=== PATIENT | female | born 1980 | race Caucasian/White ===

== ENCOUNTER 2017-04-18 15:29 | Emergency (ER) | payer OTHER ==
[~2017-04-18] VITALS: Ht 160 cm; Wt 63.5 kg
--- NOTE | 2017-04-18 15:36 | NUR ---
TO ROOM: AMBULATE TO ROOM WITHOUT ASSISTANCE. FALL LAST NIGHT AT 4:00 IN AM
--- NOTE | 2017-04-18 15:55 | NUR ---
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
--- NOTE | 2017-04-18 16:11 | DIREP ---
PROCEDURE:XRAY WRIST MIN 3VW-RT COMPARISON:None. INDICATIONS:FALL, WRIST INJURY FINDINGS: BONES:Normal. JOINTS:Normal. SOFT TISSUES:Normal. OTHER:No additional findings. CONCLUSION:Normal examination. Dictated by: Yannick Hook M.D. on 04/18/2017 at 04:09 PM
--- NOTE | 2017-04-18 16:16 | NUR ---
XRAY RESULTS: RESULTS BACK REPORTED TO DR. SAUNDERS
--- NOTE | 2017-04-18 16:28 | ER.PDOC ---
General Chief Complaint: Extremities Stated Complaint: WRIST PAIN Time seen by MD: 16:11 Source: patient History of Present Illness Occurred: yesterday Where: home Severity: mild Modifying Factors: pain on movement Allergies: Coded Allergies: Penicillins (Verified Allergy, Intermediate, TOLARISA PINEDA, 04/18/17) Past Medical History LMP (females 10-50): last week Family History Significant Family History: no pertinent family hx Social History Smoking: greater than 1 pack/day Alcohol Use: occassionally Drug Use: none Review of Systems All Other Systems: Reviewed and Negative Physical Exam General Appearance: Alert, No Apparent Distress Hand: nml inspection, non-tender Wrist: tenderness Forearm/Elbow: nml inspection, non-tender, nml ROM Arm/Shoulder: nml inspection, non-tender, nml ROM Skin: warm/dry Head/ENT: nml inspection, pharynx nml Neck/Back: nml inspection, non-tender Respiratory: chest non-tender, breath sounds nml CVS: heart sounds normal Abdomen: non-tender, no organomegaly EKG/XRAY/CT/US XRAY: wrist XRAY Comments: non tender Departure Time of Disposition: 16:32 Impression: Primary Impression: Wrist sprain Condition: Stable Referrals: PCP,UNKNOWN (PCP) PRIMARY CARE PROVIDER MARIO SAUNDERS Dr., MD Apr 18, 2017 16:28
[2017-04-18 16:42] VITALS: BP 123/67
== END 2017-04-18 16:42 | disposition home or self-care (01) ==
LOC: ER 15:29
DX: S63.501A Unspecified sprain of right wrist, initial encounter (principal); F17.200 Nicotine dependence, unspecified, uncomplicated; Z88.0 Allergy status to penicillin; X58.XXXA Exposure to other specified factors, initial encounter; Y93.89 Activity, other specified; Y92.009 Unspecified place in unspecified non-institutional (private) residence as the place of occurrence of the external cause; Y99.8 Other external cause status
CPT/HCPCS: 29125; 99284; 73110-RT